=== PATIENT | female | born 2000 | race African-American/Black ===

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

== ENCOUNTER 2020-04-06 20:44 | Emergency (ER) | payer SELFPAY ==
[~2020-04-06] VITALS: Ht 165.1 cm; Wt 89.5 kg
[~2020-04-06 20:44] MED LIST: ONDA4TAB12 PO
[2020-04-06 21:17] LABS: BILIRUBIN,URINE NEGATIVE (NEG); CLARITY,URINE CLEAR; COLOR,URINE YELLOW; NITRITE,URINE NEGATIVE (NEG); PROTEIN,URINE NEGATIVE (NEG-TRACE); UROBILINOGEN,URINE 0.2 mg/dL (0.2 mg/dL)
[2020-04-06 21:22] LABS: SQUAMOUS EPITHELIAL CELL,UR MOD /LPF
[2020-04-06 21:23] LABS: BACTERIA,URINE FEW /HPF (0-FEW)
[2020-04-06] MEDS ORDERED: cefTRIAXone IM 250 MG VIAL IM ONE (21:30)
[2020-04-06] MEDS ORDERED: AZITHROMYCIN 250 MG TABLET. PO ONE (21:30)
[2020-04-06] MEDS ORDERED: metroNIDAZOLE 500 MG TABLET PO ONE (21:30)
--- NOTE | 2020-04-06 21:53 | PHYS DOC ---
Past Medical History Past Medical History: No Pertinent History Past Surgical History: No Surgical History Smoking Status: Former Smoker Alcohol Use: None Drug Use: None General Adult EDM: Chief Complaint: SEXUALLY TRANSMITTED DISEASE HPI: HPI: Patient is a 20 year old female who presents the ED today requesting STD treatment as well as UTI check. Review of Systems: Review of Systems: Constitutional: Denies fever or chills. [] Eyes: Denies change in visual acuity. [] HENT: Denies nasal congestion or sore throat. [] Respiratory: Denies cough or shortness of breath. [] Cardiovascular: Denies chest pain or edema. [] GI: Denies abdominal pain, nausea, vomiting, bloody stools or diarrhea. [] : Request for UTI check. Request for STD treatment denies dysuria. [] Musculoskeletal: Denies back pain or joint pain. [] Integument: Denies rash. [] Neurologic: Denies headache, focal weakness or sensory changes. [] Psychiatric: Denies depression or anxiety. [] Heart Score: Risk Factors: Risk Factors: DM, Current or recent (<one month) smoker, HTN, HLP, family history of CAD, obesity. Risk Scores: Score 0 - 3: 2.5% MACE over next 6 weeks - Discharge Home Score 4 - 6: 20.3% MACE over next 6 weeks - Admit for Clinical Observation Score 7 - 10: 72.7% MACE over next 6 weeks - Early Invasive Strategies Current Medications: Current Medications Medications (Trade) Dose Ordered Sig/Shlomo Start Time Stop Time Status Last Admin Dose Admin Azithromycin (Zithromax) 1,000 mg 1X ONCE 04/06/20 21:30 04/06/20 21:31 DC Ceftriaxone Sodium (Rocephin Im) 250 mg 1X ONCE 04/06/20 21:30 04/06/20 21:31 DC Metronidazole (Flagyl) 2,000 mg 1X ONCE 04/06/20 21:30 04/06/20 21:31 DC Allergies: Allergies: Allergies Coded Allergies Type Severity Reaction Last Updated Verified No Known Drug Allergies 05/07/18 No Physical Exam: PE: Constitutional: Well developed, well nourished, no acute distress, non-toxic appearance. [] HENT: Normocephalic, atraumatic, bilateral external ears normal, oropharynx moist, no oral exudates, nose normal. [] Eyes: PERRLA, EOMI, conjunctiva normal, no discharge. [] Neck: Normal range of motion, no tenderness, supple, no stridor. [] Cardiovascular:Heart rate regular rhythm, no murmur [] Lungs & Thorax: Bilateral breath sounds clear to auscultation [] Abdomen: Bowel sounds normal, soft, no tenderness, no masses, no pulsatile masses. [] Skin: Warm, dry, no erythema, no rash. [] Back: No tenderness, no CVA tenderness. [] Extremities: No tenderness, no cyanosis, no clubbing, ROM intact, no edema. [] Neurologic: Alert and oriented X 3, normal motor function, normal sensory function, no focal deficits noted. [] Psychologic: Affect normal, judgement normal, mood normal. [] Current Patient Data: Labs: Laboratory Tests Test 04/06/20 20:49 04/06/20 20:58 Urine Collection Type Unknown Urine Color Yellow Urine Clarity Clear Urine pH 6.0 (<5.0-8.0) Urine Specific Darling 1.020 (1.000-1.030) Urine Protein Negative mg/dL (NEG-TRACE) Urine Glucose (UA) Negative mg/dL (NEG) Urine Ketones (Stick) Negative mg/dL (NEG) Urine Blood Negative (NEG) Urine Nitrite Negative (NEG) Urine Bilirubin Negative (NEG) Urine Urobilinogen Dipstick 0.2 mg/dL (0.2 mg/dL) Urine Leukocyte Esterase Trace (NEG) Urine RBC 1-2 /HPF (0-2) Urine WBC 11-20 /HPF (0-4) Urine Squamous Epithelial Cells Mod /LPF Urine Bacteria Few /HPF (0-FEW) Urine Mucus Marked /LPF POC Urine HCG, Qualitative Hcg negative (Negative) Vital Signs: Vital Signs Date Time Temp Pulse Resp B/P (MAP) Pulse Ox O2 Delivery O2 Flow Rate FiO2 04/06/20 20:48 98.6 80 16 126/58 (80) 99 Room Air 98.6 EKG: EKG: [] Radiology/Procedures: Radiology/Procedures: [] Course & Med Decision Making: Course & Med Decision Making Pertinent Labs and Imaging studies reviewed. (See chart for details) This is a 20-year-old female patient requesting STD treatment as well as UTI check. Negative urine hCG, urine was sent for STD check. Patient was treated in the emergency room. She states the boyfriend will come later today and get treated. Urine noted for trace amount of leukocytes. Discharge to home. Follow-up with PCP. Rupert Disclaimer: Rupert Disclaimer: This electronic medical record was generated, in whole or in part, using a voice recognition dictation system. Departure Departure Impression: Primary Impression: Concern about STD in female without diagnosis Disposition: HOME, SELF-CARE Condition: STABLE Referrals: NO PCP (PCP) follow up in 1-2 weeks with your doctor or the health department Patient Instructions: Sexually Transmitted Disease, [id number] Additional Instructions: You were treated for sexually transmitted diseases. Ensure your partner gets treated. Use protection at all times. Do not have intercourse for 7 days Justicifation of Admission Dx: Justifications for Admission: Justification of Admission Dx: N/A JEREMY VALLECILLO LUMP ROLLER Apr 06, 2020 21:53
[2020-04-06 22:00] VITALS: BP 124/67
== END 2020-04-06 22:03 | disposition home or self-care (01) ==
LOC: ER 20:44
DX: N89.8 Other specified noninflammatory disorders of vagina (principal); Z20.2 Contact with and (suspected) exposure to infections with a predominantly sexual mode of transmission; Z87.891 Personal history of nicotine dependence
CPT/HCPCS: 81001; 81025; 87491; 87591; 96372; 99283; J0696

== ENCOUNTER 2020-07-28 14:59 | Emergency (ER) | payer SELFPAY ==
[~2020-07-28] VITALS: Ht 165.1 cm; Wt 195.0 kg
--- NOTE | 2020-07-28 16:24 | RAD ---
Three-view right ankle study Clinical indications: Ankle pain since popping injury yesterday. FINDINGS: Lateral soft tissue swelling is seen. The mortise ankle joint is intact. No acute fracture or dislocation or lytic process is seen. IMPRESSION: No acute fracture. Electronically signed by: Alo Loera MD (07/28/2020 4:22 PM) [id number]
[2020-07-28] MEDS ORDERED: NAPR-514 PO (16:53)
--- NOTE | 2020-07-28 16:53 | ED.ADGEN ---
Past Medical History Past Medical History: Other Additional Past Medical Histor: Low iron Past Surgical History: No Surgical History Smoking Status: Former Smoker Alcohol Use: None Drug Use: None General Adult EDM: Chief Complaint: ANKLE PROBLEM HPI: HPI: Patient is a 20 year old female who presents emergency department with complaints of right ankle pain and swelling after she felt something pop yesterday evening at approximately 1800. She denies any numbness, tingling, or decreased sensation of the affected extremity. Patient states she has been unable to bear weight on her right ankle since she felt a pop. She currently rates pain 8 out of 10 on the pain scale, she denies any alleviating factors, the pain is worse with palpation, movement, and weightbearing. Review of Systems: Review of Systems: Complete ROS is negative unless otherwise noted in HPI. Allergies: Allergies: Allergies Coded Allergies Type Severity Reaction Last Updated Verified No Known Drug Allergies 05/07/18 No Physical Exam: PE: See Above Constitutional: Well developed, well nourished, no acute distress, non-toxic appearance. [] HENT: Normocephalic, atraumatic, bilateral external ears normal, nose normal. [] Eyes: PERRLA, EOMI, conjunctiva normal, no discharge. [] Neck: Normal range of motion, no stridor. [] Cardiovascular:Heart rate regular rhythm Lungs & Thorax: Respirations even and unlabored, no retractions, no respiratory distress Skin: Warm, dry, no erythema, no rash. [] Extremities: Right ankle: Medial and lateral tenderness palpation without crepitus or obvious deformity, 2+ pedal pulse, normal sensation, 1+ edema, ROM limited due to pain intolerance Neurologic: Alert and oriented X 3, no focal deficits noted. [] Psychologic: Affect normal, judgement normal, mood normal. [] Current Patient Data: Labs: Laboratory Tests Test 07/28/20 15:44 POC Urine HCG, Qualitative Hcg negative (Negative) Vital Signs: Vital Signs Date Time Temp Pulse Resp B/P (MAP) Pulse Ox O2 Delivery O2 Flow Rate FiO2 07/28/20 15:25 98.2 78 117/68 (84) 98 98.2 07/28/20 15:16 18 Room Air EKG: EKG: [] Heart Score: Risk Factors: Risk Factors: DM, Current or recent (<one month) smoker, HTN, HLP, family history of CAD, obesity. Risk Scores: Score 0 - 3: 2.5% MACE over next 6 weeks - Discharge Home Score 4 - 6: 20.3% MACE over next 6 weeks - Admit for Clinical Observation Score 7 - 10: 72.7% MACE over next 6 weeks - Early Invasive Strategies Radiology/Procedures: Radiology/Procedures: PROCEDURE: ANKLE RIGHT 3V Three-view right ankle study Clinical indications: Ankle pain since popping injury yesterday. FINDINGS: Lateral soft tissue swelling is seen. The mortise ankle joint is intact. No acute fracture or dislocation or lytic process is seen. IMPRESSION: No acute fracture. [] Course & Med Decision Making: Course & Med Decision Making Pertinent Labs and Imaging studies reviewed. (See chart for details) 20-year-old female presents emergency department with complaints of right ankle pain. X-ray is negative for any acute findings. Patient was placed in ankle immobilizer, she was provided with Dr. Salazar's information for follow-up. Prescription written for naproxen 500 p.o. twice daily x10 days, also recommend Tylenol as needed for pain. Return to the ER if symptoms worsen. [] Dragon Disclaimer: Dragon Disclaimer: This electronic medical record was generated, in whole or in part, using a voice recognition dictation system. Departure Departure Impression: Primary Impression: Acute right ankle pain Disposition: 01 DC HOME SELF CARE/HOMELESS Condition: STABLE Referrals: NO PCP (PCP) ZHANNA SALAZAR MD Patient Instructions: Ankle Pain Additional Instructions: Fill prescription(s) and use as directed. Recommend application of ice, elevation, and rest of affected extremity. Weightbearing as tolerated. Wear the Robinson wrap and splint splint that was placed as needed for comfort. Follow-up with Dr. Salazar if symptoms persist, return to the ER if your symptoms worsen. Scripts Naproxen (NAPROXEN) 500 Mg Tablet 1 TAB PO BID PRN for PAIN for 10 Days, #20 TAB 0 Refills Prov: JUAN CHOE APRN 07/28/20 Splinting Splinting : Location: R ankle Pre-Made Type: velcro (ankle splint and robinson wrap) Pre-Proc Neuro Vasc Exam: normal Post-Proc Neuro Vasc Exam: normal, unchanged from pre-exam JUAN CHOE APRN Jul 28, 2020 16:53
[2020-07-28 16:55] VITALS: BP 115/98
== END 2020-07-28 16:55 | disposition home or self-care (01) ==
LOC: ER 14:59
DX: M25.571 Pain in right ankle and joints of right foot (principal); Z87.891 Personal history of nicotine dependence
CPT/HCPCS: 29515; 73610; 81025; 99283